=== PATIENT | male | born 1995 | race African-American/Black ===

== ENCOUNTER 2018-08-14 17:03 | Emergency (ER) | payer OTHER, SELFPAY | END 2018-08-14 18:45 | disposition home or self-care (01) | LOC: ERS 17:03 | DX: L30.9 Dermatitis, unspecified (principal); E11.9 Type 2 diabetes mellitus without complications; J45.909 Unspecified asthma, uncomplicated; F17.290 Nicotine dependence, other tobacco product, uncomplicated; Z79.4 Long term (current) use of insulin | CPT/HCPCS: 99282 ==